=== PATIENT | female | born 1995 | race Caucasian/White ===

== ENCOUNTER 2018-07-06 16:10 | Emergency (ER) | payer OTHER ==
[2018-07-06] MEDS ORDERED: NORMAL SALINE 1000 ML 1,000 ML IV ONE (16:32)
[2018-07-06] MEDS ORDERED: PROMETHAZINE HCL INJ 25 MG/1 ML VIAL IV ONE (16:33)
--- NOTE | 2018-07-06 16:35 | ER Document Report ---
ED Medical Screen (RME) - General Chief Complaint: Flu Symptoms Stated Complaint: FLU SYMPTOMS Time Seen by Provider: 07/06/18 16:27 Notes: Patient is a 23-year-old female that is 15 weeks gravid that presents to the emergency department for chief complaint of nausea, vomiting, epigastric abdominal pain, after taking Zoloft last night. ROS: Unless otherwise stated in this report the patient's positive and negative responses for review of systems for constitutional, eyes, ENT, cardiovascular, respiratory, gastrointestinal, neurological, genitourinary, musculoskeletal, and integumentary systems and related systems to the presenting problem are either as stated in the HPI or were not pertinent or were negative for the symptoms and/or complaints related to the presenting medical problem. PHYSICAL EXAMINATION: Vital signs reviewed. GENERAL: Patient appears uncomfortable HEAD: Atraumatic, normocephalic. EYES: Pupils equal round extraocular movements intact, conjunctiva are normal. ENT: Nares patent NECK: Normal range of motion CV: Heart regular rate and rhythm LUNGS: No respiratory distress Musculoskeletal: Normal range of motion NEUROLOGICAL: Normal speech PSYCH: Normal mood, normal affect. MDM: Patient seen and examined for rapid initial assessment. Vital signs reviewed. A comprehensive ED assessment and evaluation of the patient, analysis of test results and completion of the medical decision making process will be conducted by additional ED providers. *Note is created using voice recognition software and may contain spelling, syntax or grammatical errors. TRAVEL OUTSIDE OF THE [place] IN LAST 30 DAYS: No - Related Data Allergies/Adverse Reactions: hydrocodone Allergy (Verified 07/06/18 16:17) Past Medical History - Social History Frequency of alcohol use: None Drug Abuse: None Renal/ Medical History: Denies: Hx Peritoneal Dialysis Psychiatric Medical History: Reports: Hx Depression Past Surgical History: Reports: Hx Oral Surgery - wisdom teeth Physical Exam - Vital signs Vitals: Temp Pulse Resp BP Pulse Ox 98.4 F 75 18 117/65 97 07/06/18 16:11 07/06/18 16:11 07/06/18 16:11 07/06/18 16:11 07/06/18 16:11 Course - Vital Signs Vital signs: Temp Pulse Resp BP Pulse Ox 98.4 F 75 18 117/65 97 07/06/18 16:11 07/06/18 16:11 07/06/18 16:11 07/06/18 16:11 07/06/18 16:11
[2018-07-06 17:07] LABS: ABSOLUTE LYMPHOCYTES (AUTO) 1.9 10^3/uL (0.5-4.7); ABSOLUTE MONOCYTES (AUTO) 0.7 10^3/uL (0.1-1.4); ABSOLUTE NEUT (AUTO) 8.6 10^3/uL (1.7-8.2); BASOPHILS % (AUTO) 0.2 % (0-2); EOSINOPHILS % (AUTO) 0.1 % (0-6); HEMOGLOBIN 12.9 g/dL (12.0-15.5); LYMPHOCYTES % (AUTO) 16.5 % (13-45); MEAN CORPUSCULAR HEMOGLOBIN 29.9 pg (27.0-33.4); MEAN CORPUSCULAR HGB CONC 34.8 g/dL (32.0-36.0); MEAN CORPUSCULAR VOLUME 86 fl (80-97); MONOCYTES % (AUTO) 6.4 % (3-13); PLATELET COUNT 184 10^3/uL (150-450); RED CELL DISTRIBUTION WIDTH 13.3 % (11.5-14.0); SEGMENTED NEUTROPHILS % (AUTO) 76.8 % (42-78); TOTAL CELLS COUNTED % (AUTO) 100 %; WHITE BLOOD COUNT 11.2 10^3/uL (4.0-10.5)
[2018-07-06 17:17] LABS: APPEARANCE,URINE SLIGHTLY-CLOUDY; BILIRUBIN,URINE NEGATIVE (NEGATIVE); COLOR,URINE YELLOW; GLUCOSE, URINE NEGATIVE (NEGATIVE); KETONES,URINE 80 mg/dL (NEGATIVE); LEUKOCYTE ESTERASE,URINE NEGATIVE (NEGATIVE); NITRITE,URINE NEGATIVE (NEGATIVE); PROTEIN,URINE NEGATIVE (NEGATIVE); URINE SPECIFIC GRAVITY 1.024; UROBILINOGEN,URINE NEGATIVE mg/dL (<2.0)
[2018-07-06 17:25] LABS: ALANINE AMINOTRANSFERASE 14 U/L (9-52); ALBUMIN 4.3 g/dL (3.5-5.0); ALKALINE PHOSPHATASE 70 U/L (38-126); ANION GAP 15 (5-19); ASPARTATE AMINO TRANSFERASE 19 U/L (14-36); BILIRUBIN,DIRECT 0.1 mg/dL (0.0-0.4); BILIRUBIN,TOTAL 0.6 mg/dL (0.2-1.3); BLOOD UREA NITROGEN 5 mg/dL (7-20); CALCIUM 9.7 mg/dL (8.4-10.2); CARBON DIOXIDE 22 mmol/L (22-30); CHLORIDE 103 mmol/L (98-107); GLUCOSE 79 mg/dL (75-110); LIPASE 211.1 U/L (23-300); POTASSIUM 3.8 mmol/L (3.6-5.0); SODIUM 139.6 mmol/L (137-145); TOTAL PROTEIN 7.6 g/dL (6.3-8.2)
[2018-07-06] MEDS ORDERED: FAMOTIDINE INJ/PF 20 MG/2 ML SDV IV ONE (17:48)
--- NOTE | 2018-07-06 17:55 | ER Document Report ---
ED General - General Chief Complaint: Flu Symptoms Stated Complaint: FLU SYMPTOMS Time Seen by Provider: 07/06/18 16:27 TRAVEL OUTSIDE OF THE [place] IN LAST 30 DAYS: No - HPI Notes: Patient is a 23-year-old female at 15 weeks gestation that presents to the emergency department for chief complaint of epigastric pain nausea and vomiting. Patient had sudden onset of acute epigastric pain yesterday. She states that radiates up into her chest. It is a burning sensation. She denies any aggravating or relieving factors. The pain is been constant since onset yesterday. She denies history of pain like this in the past. She denies any chest pain palpitations or shortness of breath. She does have hyperemesis gravidarum with this and takes Zofran and Phenergan at home. She has been taking these medications with some improvement of her nausea. She states just prior to onset of her pain she had taken a Zoloft which is a chronic home medication for her. She denies any alcohol consumption or tobacco use. She is taking vitamins. She has established care including early ultrasound showing single live intrauterine gestation at [facility] where she plans to deliver. Past Medical History: Anxiety, depression Past Surgical History: Negative Social History: Denies drugs alcohol and tobacco Family History: Reviewed and noncontributory for presenting illness Allergies: Reviewed, see documented allergy list. REVIEW OF SYSTEMS: CONSTITUTIONAL : No fever No chills No diaphoresis No recent illness EENT: No vision changes No congestion No sore throat CARDIOVASCULAR: No chest pain No palpitations RESPIRATORY: No shortness of breath No cough No difficulty breathing GASTROINTESTINAL: abdominal pain nausea vomiting No diarrhea GENITOURINARY: No dysuria No hematuria No difficulty urinating MUSCULOSKELETAL: No back pain No leg pain No arm pain SKIN: No rashes No lesions LYMPHATIC: No swollen, enlarged glands. NEUROLOGICAL: No lightheadedness No headache No weakness No paresthesias PSYCHIATRIC: No anxiety No depression PHYSICAL EXAMINATION: Vital signs reviewed, nursing noted reviewed. GENERAL: Well-appearing, well-nourished and in no acute distress. HEAD: Atraumatic, normocephalic. EYES: Eyes appear normal, extraocular movements intact, sclera anicteric, conjunctiva are normal. ENT: nares patent, oropharynx clear without exudates. Moist mucous membranes. NECK: Normal range of motion, supple without lymphadenopathy LUNGS: Breath sounds clear to auscultation bilaterally and equal. No wheezes rales or rhonchi. HEART: Regular rate and rhythm without murmurs ABDOMEN: Soft, nontender, normoactive bowel sounds. No rebound, guarding, or rigidity. No masses appreciated. Gravid uterus palpated below umbilicus, soft nontender. EXTREMITIES: Nontender, good range of motion, no pitting or edema. NEUROLOGICAL: No focal neurological deficits. Moves all extremities spontaneously Motor and sensory grossly intact on exam. PSYCH: Normal mood, normal affect. SKIN: Warm, Dry, normal turgor, no rashes or lesions noted on exposed skin - Related Data Allergies/Adverse Reactions: hydrocodone Allergy (Verified 07/06/18 16:17) Past Medical History - Social History Smoking Status: Never Smoker Frequency of alcohol use: None Drug Abuse: None Family History: Reviewed & Not Pertinent Patient has suicidal ideation: No Patient has homicidal ideation: No Renal/ Medical History: Denies: Hx Peritoneal Dialysis Psychiatric Medical History: Reports: Hx Depression Past Surgical History: Reports: Hx Oral Surgery - wisdom teeth Review of Systems - Review of Systems Notes: Dictated Physical Exam - Vital signs Vitals: Temp Pulse Resp BP Pulse Ox 98.4 F 75 18 117/65 97 07/06/18 16:11 07/06/18 16:11 07/06/18 16:11 07/06/18 16:11 07/06/18 16:11 Course - Re-evaluation Re-evalutation: 07/06/18 17:51 Vitals reviewed. Nursing notes reviewed. Patient is having epigastric pain radiating into her chest. It has been constant since yesterday. Troponin was ordered and negative, I do not suspect ACS. She is not having any respiratory complaints or shortness of breath and pulmonary embolism is not currently suspected. Patient was given Pepcid for her epigastric pain. She was given IV hydration and Phenergan with improvement of symptoms. The remainder of her lab work is unremarkable. She has normal renal function and electrolytes. She was encouraged to follow with her [employer] [employer] for reevaluation in the next few days. She states she has an appointment on 07/13/13. She will return for any new or worsening symptoms. She will begin taking Pepcid at home and Tums. She was counseled on dietary changes to help with GERD. She verbalized understanding and was discharged in stable condition. Laboratory 07/06/18 07/06/18 07/06/18 16:50 16:50 16:50 WBC 11.2 H RBC 4.30 Hgb 12.9 Hct 37.0 MCV 86 MCH 29.9 MCHC 34.8 RDW 13.3 Plt Count 184 Seg Neutrophils % 76.8 Lymphocytes % 16.5 Monocytes % 6.4 Eosinophils % 0.1 Basophils % 0.2 Absolute Neutrophils 8.6 H Absolute Lymphocytes 1.9 Absolute Monocytes 0.7 Absolute Eosinophils 0.0 Absolute Basophils 0.0 Sodium 139.6 Potassium 3.8 Chloride 103 Carbon Dioxide 22 Anion Gap 15 BUN 5 L Creatinine 0.44 L Est GFR ( Amer) > 60 Est GFR (Non-Af Amer) > 60 Glucose 79 Calcium 9.7 Total Bilirubin 0.6 Direct Bilirubin 0.1 Neonat Total Bilirubin Not Reportable Neonat Direct Bilirubin Not Reportable Neonat Indirect Bili Not Reportable AST 19 ALT 14 Alkaline Phosphatase 70 Troponin I < 0.012 Total Protein 7.6 Albumin 4.3 Lipase 211.1 Urine Color Urine Appearance Urine pH Ur Specific [place] Urine Protein Urine Glucose (UA) Urine Ketones Urine Blood Urine Nitrite Urine Bilirubin Urine Urobilinogen Ur Leukocyte Esterase Urine WBC (Auto) Urine RBC (Auto) Urine Bacteria (Auto) Squamous Epi Cells Auto Urine Mucus (Auto) Urine Ascorbic Acid 07/06/18 16:50 WBC RBC Hgb Hct MCV MCH MCHC RDW Plt Count Seg Neutrophils % Lymphocytes % Monocytes % Eosinophils % Basophils % Absolute Neutrophils Absolute Lymphocytes Absolute Monocytes Absolute Eosinophils Absolute Basophils Sodium Potassium Chloride Carbon Dioxide Anion Gap BUN Creatinine Est GFR ( Amer) Est GFR (Non-Af Amer) Glucose Calcium Total Bilirubin Direct Bilirubin Neonat Total Bilirubin Neonat Direct Bilirubin Neonat Indirect Bili AST ALT Alkaline Phosphatase Troponin I Total Protein Albumin Lipase Urine Color YELLOW Urine Appearance SLIGHTLY-CLOUDY Urine pH 6.0 Ur Specific [place] 1.024 Urine Protein NEGATIVE Urine Glucose (UA) NEGATIVE Urine Ketones 80 H Urine Blood NEGATIVE Urine Nitrite NEGATIVE Urine Bilirubin NEGATIVE Urine Urobilinogen NEGATIVE Ur Leukocyte Esterase NEGATIVE Urine WBC (Auto) 4 Urine RBC (Auto) 1 Urine Bacteria (Auto) 2+ Squamous Epi Cells Auto 2 Urine Mucus (Auto) MANY Urine Ascorbic Acid 20 H - Vital Signs Vital signs: Temp Pulse Resp BP Pulse Ox 98.4 F 75 18 117/65 97 07/06/18 16:11 07/06/18 16:11 07/06/18 16:11 07/06/18 16:11 07/06/18 16:11 - Laboratory Result Diagrams: 07/06/18 16:50 07/06/18 16:50 Laboratory results interpreted by me: 07/06/18 07/06/18 07/06/18 16:50 16:50 16:50 WBC 11.2 H Absolute Neutrophils 8.6 H BUN 5 L Creatinine 0.44 L Urine Ketones 80 H Urine Ascorbic Acid 20 H - EKG Interpretation by Me Additional EKG results interpreted by me: 07/06/18 17:52 Interpreted by myself Normal sinus rhythm, rate 60, normal axis, no ectopy, no ST elevation Discharge - Discharge Clinical Impression: Epigastric pain Condition: Stable Disposition: HOME, SELF-CARE Instructions: Reflux Disease (GERD) ([facility]) Additional Instructions: Please return to the emergency department if you have any worsening, or concern of your symptoms. Please return to the emergency department if you develop chest pain, difficulty breathing, severe abdominal pain, or ongoing vomiting. Please follow-up with your primary care physician in 2-3 days and any other recommended physicians. If prescribed, take all medications as directed. If you have any questions or concerns do not hesitate to return the emergency department for evaluation. [] Prescriptions: Ranitidine HCl 150 mg PO BID #30 tablet
[2018-07-06 19:32] VITALS: BP 114/66
--- NOTE | 2018-07-06 22:07 | EKG REPORT ---
SEVERITY:- NORMAL ECG - SINUS RHYTHM : Confirmed by: Tra Seth 06-Jul-2018 22:06:37
== END 2018-07-06 18:09 | disposition home or self-care (01) ==
LOC: ER 16:10
DX: O26.892 Other specified pregnancy related conditions, second trimester (principal); R10.13 Epigastric pain; O21.0 Mild hyperemesis gravidarum; O99.342 Other mental disorders complicating pregnancy, second trimester; F32.9 Major depressive disorder, single episode, unspecified; F41.9 Anxiety disorder, unspecified; Z79.899 Other long term (current) drug therapy; Z3A.15 15 weeks gestation of pregnancy; Z88.5 Allergy status to narcotic agent
CPT/HCPCS: 93005; 99284; 96361; 96374; 96375; 36415; 83690; 85025; 80053; 81001; 84484; 93010; J2550; J7030; S0028

== ENCOUNTER 2019-11-23 16:42 | Emergency (ER) | payer BC, OTHER ==
[2019-11-23] MEDS ORDERED: ONDANSETRON 4 MG TAB.RAPDIS PO ONE (17:35)
--- NOTE | 2019-11-23 17:37 | ER Document Report ---
ED Medical Screen (RME) - General Chief Complaint: Fever Stated Complaint: CHEST PAIN/NECK PAIN Time Seen by Provider: 11/23/19 17:24 Mode of Arrival: Ambulatory Information source: Patient Notes: 24-year-old female patient presents emergency department multiple symptoms today. Patient reports cough, fever, congestion, neck pain, ear pain, states she has been sick for several days. Denies any recent travel, denies any exposure to any known COVID patients. Lung sounds clear and equal bilaterally. I have greeted and performed a rapid initial assessment of this patient. A comprehensive ED assessment and evaluation of the patient, analysis of test results and completion of the medical decision making process will be conducted by additional ED providers. I have specifically instructed the patient or family members with the patient to immediately return to any nursing staff should anything change in the patient's condition or with their chief complaint. TRAVEL OUTSIDE OF THE [place] IN LAST 30 DAYS: No - Related Data Allergies/Adverse Reactions: hydrocodone Allergy (Verified 07/06/18 16:17) Home Medications: Prozac. Buspar. Vitamin B12. Vitamin D. Iron. Sumatriptin. Propanolol. Lisinopril. Flexeril. Celebrex Past Medical History - Social History Frequency of alcohol use: Occasional Drug Abuse: None Renal/ Medical History: Denies: Hx Peritoneal Dialysis Psychiatric Medical History: Reports: Hx Depression Past Surgical History: Reports: Hx Oral Surgery - wisdom teeth Physical Exam - Vital signs Vitals: Temp Pulse Resp BP Pulse Ox 98.2 F 56 L 16 134/65 H 99 11/23/19 17:07 11/23/19 17:07 11/23/19 17:07 11/23/19 17:07 11/23/19 17:07 Course - Vital Signs Vital signs: Temp Pulse Resp BP Pulse Ox 98.2 F 56 L 16 134/65 H 99 11/23/19 17:07 11/23/19 17:07 11/23/19 17:07 11/23/19 17:07 11/23/19 17:07
[2019-11-23 18:28] LABS: ABSOLUTE EOSINOPHILS # (AUTO) 0.1 10^3/uL (0.0-0.6); ABSOLUTE LYMPHOCYTES (AUTO) 2.8 10^3/uL (0.5-4.7); ABSOLUTE MONOCYTES (AUTO) 0.5 10^3/uL (0.1-1.4); ABSOLUTE NEUT (AUTO) 4.9 10^3/uL (1.7-8.2); BASOPHILS % (AUTO) 0.4 % (0-2); EOSINOPHILS % (AUTO) 1.4 % (0-6); HEMATOCRIT 38.8 % (36.0-47.0); LYMPHOCYTES % (AUTO) 33.1 % (13-45); MEAN CORPUSCULAR HEMOGLOBIN 30.5 pg (27.0-33.4); MEAN CORPUSCULAR VOLUME 85 fl (80-97); MONOCYTES % (AUTO) 6.5 % (3-13); PLATELET COUNT 225 10^3/uL (150-450); RED BLOOD COUNT 4.57 10^6/uL (3.72-5.28); RED CELL DISTRIBUTION WIDTH 12.9 % (11.5-14.0); SEGMENTED NEUTROPHILS % (AUTO) 58.6 % (42-78); TOTAL CELLS COUNTED % (AUTO) 100 %; WHITE BLOOD COUNT 8.4 10^3/uL (4.0-10.5)
[2019-11-23 18:33] LABS: APPEARANCE,URINE SLIGHTLY-CLOUDY; BILIRUBIN,URINE NEGATIVE (NEGATIVE); COLOR,URINE YELLOW; GLUCOSE, URINE NEGATIVE (NEGATIVE); KETONES,URINE NEGATIVE (NEGATIVE); LEUKOCYTE ESTERASE,URINE NEGATIVE (NEGATIVE); NITRITE,URINE NEGATIVE (NEGATIVE); PROTEIN,URINE NEGATIVE (NEGATIVE); URINE SPECIFIC GRAVITY 1.012; UROBILINOGEN,URINE NEGATIVE mg/dL (<2.0)
[2019-11-23 18:42] LABS: A TYPE INFLUENZA AG NEGATIVE (NEGATIVE); B INFLUENZA AG NEGATIVE (NEGATIVE)
[2019-11-23 18:43] LABS: ALBUMIN 4.6 g/dL (3.5-5.0); ALKALINE PHOSPHATASE 90 U/L (38-126); ANION GAP 10 (5-19); ASPARTATE AMINO TRANSFERASE 31 U/L (14-36); BILIRUBIN,DIRECT 0.3 mg/dL (0.0-0.4); BILIRUBIN,TOTAL 0.3 mg/dL (0.2-1.3); BLOOD UREA NITROGEN 9 mg/dL (7-20); CALCIUM 9.8 mg/dL (8.4-10.2); CARBON DIOXIDE 28 mmol/L (22-30); CHLORIDE 104 mmol/L (98-107); GLUCOSE 83 mg/dL (75-110); TOTAL PROTEIN 8.1 g/dL (6.3-8.2)
[2019-11-23] MEDS ORDERED: ONDANSETRON 4 MG TAB.RAPDIS ONE (20:00)
[2019-11-23] MEDS ORDERED: PROCHLORPERAZINE EDISYLATE INJ 10 MG/2 ML VIAL IV ONE (21:15)
[2019-11-23] MEDS ORDERED: NORMAL SALINE 500 ML IV ONE (21:15)
[2019-11-23] MEDS ORDERED: KETOROLAC TROMETHAMINE INJ/PF 30 MG/1 ML SDV IV ONE (21:15)
--- NOTE | 2019-11-23 21:19 | ER Document Report ---
ED General - General Chief Complaint: Fever Stated Complaint: CHEST PAIN/NECK PAIN Time Seen by Provider: 11/23/19 17:24 Mode of Arrival: Ambulatory TRAVEL OUTSIDE OF THE [place] IN LAST 30 DAYS: No - HPI Notes: Patient is a 24-year-old female who presents to the ED complaining of nasal congestion/discharge, dry nonproductive cough, irritated throat, fever, body ache. Her fever began today and her URI/cough has been ongoing for 1-2 weeks. She did have n/v a few days ago but that has resolved. She does have a h/o migraines and has been having a RODRIGUEZ for the past 4 days. This is not the worst RODRIGUEZ of her life and did not start as a thunderclap. Patient states that she is still eating and drinking without difficulties, but does have a decreased p.o. intake. She is still urinating normally having normal bowel movements. Patient has been using some [id number] meds for symptoms. She denies any significant past medical history including cardiopulmonary history and i mmunocompromised conditions. Denies any changes in vision/speech, neck pain, chest pain, palpitations, syncope, shortness of breath, wheeze, dyspnea, abdominal pain, current vomiting/diarrhea, urinary retention, dysuria, hematuria, or rash. - Related Data Allergies/Adverse Reactions: hydrocodone Allergy (Verified 07/06/18 16:17) Home Medications: Prozac. Buspar. Vitamin B12. Vitamin D. Iron. Sumatriptin. Propanolol. Lisinopril. Flexeril. Celebrex Past Medical History - General Information source: Patient - Social History Smoking Status: Former Smoker Frequency of alcohol use: Occasional Drug Abuse: None Family History: Reviewed & Not Pertinent Patient has suicidal ideation: No Patient has homicidal ideation: No Renal/ Medical History: Denies: Hx Peritoneal Dialysis Psychiatric Medical History: Reports: Hx Depression Past Surgical History: Reports: Hx Oral Surgery - wisdom teeth Review of Systems - Review of Systems -: Yes All other systems reviewed and negative Physical Exam - Vital signs Vitals: Temp Pulse Resp BP Pulse Ox 98.2 F 56 L 16 134/65 H 99 11/23/19 17:07 11/23/19 17:07 11/23/19 17:07 11/23/19 17:07 11/23/19 17:07 - Notes Notes: PHYSICAL EXAMINATION: GENERAL: Well-appearing, well-nourished and in no acute distress. A&Ox4. Answers questions appropriately. HEAD: Atraumatic, normocephalic. Non-tender. EYES: Pupils equal round and reactive to light, extraocular movements intact, sclera anicteric, conjunctiva are normal. No nystagmus. ENT: Nares patent and with clear discharge. oropharynx no erythema without exudates. No tonsilar hypertrophy without erythema or exudate. No palatine shift. Uvula midline. No tongue protrusion. No drooling, hoarseness, or airway compromise. Moist mucous membranes. NECK: Normal range of motion, supple without lymphadenopathy. No rigidity/meningismus. + mild tenderness rt neck/trap muscle. LUNGS: Breath sounds clear to auscultation bilaterally and equal. No wheezes rales or rhonchi. No retractions LUNGS: Breath sounds clear to auscultation bilaterally and equal. No wheezes rales or rhonchi. HEART: Regular rate and rhythm without murmurs, rubs, gallops. ABDOMEN: Soft, nontender, nondistended abdomen. No guarding, no rebound. Normal bowel sounds present. No CVA tenderness bilaterally. Musculoskeletal: Ext b/l: FROM to passive/active. Strength 5+/5. No deficits noted. No bony tenderness of extremities. Extremities: No cyanosis, clubbing, or edema b/l. Peripheral pulses 2+. Capillary refill less than 2 seconds. NEUROLOGICAL: NIH 0. GCS 15. Cranial nerves grossly intact. Normal speech, normal gait. Normal sensory, motor exams. PSYCH: Normal mood, normal affect. SKIN: Warm, Dry, normal turgor, no rashes or lesions noted. Course - Re-evaluation Re-evalutation: 11/23/19 22:16 Patient is an afebrile, well-hydrated, 24-year-old male who presents to the emergency department with an acute URI, suspect viral. Vitals are acceptable without significant tachycardia, tachypnea, or hypoxia. PE is otherwise unremarkable. He is nontoxic-appearing and is tolerating p.o. without difficulty. Lungs are clear to auscultation bilaterally. Labs/imaging unremarkable. No further labs or imaging warranted at this time. Pt adamant that she rarely goes outside her home as is and does not have any known exposure to garrett. She is refusing any testing for it and states that she will be staying at home regardless for the foreseeable future. Reviewed with Dr. Jenkins who is in agreement with dispo/plan. Low suspicion for any meningitis, sepsis, peritonsillar/pharyngeal abscess, respiratory compromise, pneumonia, or other emergent systemic condition at this time. Patient is aware this condition can change from initial presentation and he needs to monitor symptoms closely. Conservative measures otherwise for symptoms. Recheck with your PCM in 1 week. Return to the ED with any worsening/concerning symptoms otherwise as reviewed in discharge. Patient is in agreement. - Vital Signs Vital signs: Temp Pulse Resp BP Pulse Ox 97.8 F 56 L 16 134/65 H 99 11/23/19 20:57 11/23/19 17:07 11/23/19 17:07 11/23/19 17:07 11/23/19 17:07 - Laboratory Result Diagrams: 11/23/19 17:50 11/23/19 17:50 Discharge - Discharge Clinical Impression: Acute URI Condition: Stable Disposition: HOME, SELF-CARE Instructions: Upper Respiratory Illness ([facility]) Additional Instructions: You should isolate yourself for the next 5-7 days at minimum and re-eval with PCM thereafter. Return with any worsening symptoms. Maintain adequate fluid intake tylenol/ibuprofen as needed alternating every 3 hours for fever/body ache over the counter cold medication as needed for symptoms Humidified air may help Wash your hands regularly Wear a mask when coughing F/u: with your PCM in 1 week for a recheck Return to the ED with any fever, altered mental status/behavior, chest pain, palpitations, syncope, headache, neck pain/stiffness, shortness of breath, chest pains, wheezing, drooling, trouble swallowing/breathing, abdominal pain, n/v/d, rash, or worsening/concerning symptoms otherwise. Forms: Elevated Blood Pressure, Return to Work Referrals: [facility] [Provider Group] - Follow up as needed
--- NOTE | 2019-11-23 21:29 | RADIOLOGY REPORT (SQ) ---
EXAM DESCRIPTION: PA and lateral radiographs of the chest CLINICAL HISTORY: 24 years Female, cough COMPARISON: None. FINDINGS: Lungs: Lungs are clear. No pneumonia or edema. No pneumothorax or pleural effusion. Mediastinum: Cardiac and mediastinal silhouette are normal. Bones: Osseous structures are normal. EKG leads overlie both sides of the chest. IMPRESSION: Unremarkable radiographs of the chest
--- NOTE | 2019-11-23 21:47 | EKG REPORT ---
SEVERITY:- BORDERLINE ECG - SINUS RHYTHM BORDERLINE T ABNORMALITIES, ANTERIOR LEADS : Confirmed by: Kristina Ramirez MD 23-Nov-2019 21:46:53
[2019-11-23 23:05] VITALS: BP 118/75
== END 2019-11-23 22:30 | disposition home or self-care (01) ==
LOC: ER 16:42
DX: J06.9 Acute upper respiratory infection, unspecified (principal); R50.9 Fever, unspecified; R07.9 Chest pain, unspecified; M54.2 Cervicalgia; R09.81 Nasal congestion; R05 Cough; R09.89 Other specified symptoms and signs involving the circulatory and respiratory systems; R63.0 Anorexia; Z88.8 Allergy status to other drugs, medicaments and biological substances; Z79.899 Other long term (current) drug therapy; Z87.891 Personal history of nicotine dependence
CPT/HCPCS: 93005; 99284; 96361; 96374; 96375; 36415; 87070; 87880; 85025; 80053; 81001; 87804; 71046; 93010; S0119; J1885; J0780; J7040

== ENCOUNTER 2020-03-10 07:20 | Emergency (ER) | payer BC ==
[2020-03-10 08:39] LABS: ABSOLUTE EOSINOPHILS # (AUTO) 0.1 10^3/uL (0.0-0.6); ABSOLUTE LYMPHOCYTES (AUTO) 1.5 10^3/uL (0.5-4.7); ABSOLUTE MONOCYTES (AUTO) 0.6 10^3/uL (0.1-1.4); ABSOLUTE NEUT (AUTO) 4.1 10^3/uL (1.7-8.2); BASOPHILS % (AUTO) 0.3 % (0-2); EOSINOPHILS % (AUTO) 1.5 % (0-6); HEMATOCRIT 40.4 % (36.0-47.0); HEMOGLOBIN 13.9 g/dL (12.0-15.5); MEAN CORPUSCULAR HEMOGLOBIN 29.7 pg (27.0-33.4); MEAN CORPUSCULAR HGB CONC 34.4 g/dL (32.0-36.0); MEAN CORPUSCULAR VOLUME 87 fl (80-97); MONOCYTES % (AUTO) 8.8 % (3-13); PLATELET COUNT 179 10^3/uL (150-450); RED BLOOD COUNT 4.67 10^6/uL (3.72-5.28); RED CELL DISTRIBUTION WIDTH 12.4 % (11.5-14.0); SEGMENTED NEUTROPHILS % (AUTO) 65.4 % (42-78); TOTAL CELLS COUNTED % (AUTO) 100 %; WHITE BLOOD COUNT 6.3 10^3/uL (4.0-10.5)
[2020-03-10 08:42] LABS: ALBUMIN 4.2 g/dL (3.5-5.0); ALKALINE PHOSPHATASE 82 U/L (38-126); ANION GAP 5 (5-19); ASPARTATE AMINO TRANSFERASE 25 U/L (14-36); BILIRUBIN,TOTAL 0.6 mg/dL (0.2-1.3); BLOOD UREA NITROGEN 11 mg/dL (7-20); CALCIUM 8.7 mg/dL (8.4-10.2); CARBON DIOXIDE 25 mmol/L (22-30); CHLORIDE 107 mmol/L (98-107); GLUCOSE 95 mg/dL (75-110); POTASSIUM 3.7 mmol/L (3.6-5.0); TOTAL PROTEIN 7.4 g/dL (6.3-8.2)
--- NOTE | 2020-03-10 09:46 | EKG REPORT ---
SEVERITY:- BORDERLINE ECG - SINUS RHYTHM BORDERLINE T ABNORMALITIES, ANTERIOR LEADS : Confirmed by: Kristina Ramirez MD 10-Mar-2020 09:45:06
--- NOTE | 2020-03-10 10:38 | ER Document Report ---
ED General - General Chief Complaint: Chest Pain Stated Complaint: CHEST PAIN/DIFFICULTY BREATHING Time Seen by Provider: 03/10/20 09:44 Primary Care Provider: SILVIA MILLARD PA-C [Primary Care Provider] - Follow up as needed TRAVEL OUTSIDE OF THE [place] IN LAST 30 DAYS: No - HPI Notes: Chief complaint: Chest pain History of present illness: 25-year-old female followed by NANCY Otto with history of chronic/recurrent chest discomfort and reports of multiple syncopal episodes in the past. She was actually scheduled to come in for an outpatient MRI of the brain at 930 this morning but did not keep this appointment because she was here being seen for chest discomfort. She states that she has had some nonproductive cough not accompanied by fever. She denies COVID-19 exposure. She denies any recent travel. No GI symptoms. No loss of sense of taste or smell. She complains of cramping discomfort in the center of her chest without radiation. History of hypertension being treated with lisinopril. She is a non-smoker. No history of hyperlipidemia or diabetes mellitus. She has at least 1 elderly relative who has had coronary disease. No younger people in the family with heart disease. She denies any known history of thromboembolic disease. She denies any use of cocaine. She denies any personal or familial history of thromboembolic disease. HEART Score: HISTORY 0 ECG 0 AGE 0 RISK FACTORS 1 TROPONIN 0 TOTAL: If HEART score is < 3 AND both tronponin measurments are normal, the 30 day risk of a major adverse cardiac event (all-cause mortality, myocardia infarction or need for coronary revscularization) is < 1% (Sensitivity 100%, NPV 100%). PERC SCORE (HADCLOTS) H no hormone administration A Age<50 D no DVT/PE previously C no hemoptysis L no unilateral leg edema O O2 sat >95% T no tachycardia S no surgery/Trauma recently - Related Data Allergies/Adverse Reactions: hydrocodone Allergy (Verified 03/10/20 07:32) Home Medications: buspar. prozac. lisinopril. iron. calcium. vit. d and b. celebrex. flexeril. imitrex Past Medical History - General Information source: Patient, [facility] Records - Social History Smoking Status: Former Smoker Chew tobacco use (# tins/day): No Frequency of alcohol use: Occasional Drug Abuse: None Occupation: Equipment Cleaner at [employer] Lives with: Family Family History: Reviewed & Not Pertinent Patient has homicidal ideation: No - Past Medical History Cardiac Medical History: Reports: None Pulmonary Medical History: Reports: None Neurological Medical History: Reports: Other - Chronic/recurrent syncope being worked up by primary care physician Endocrine Medical History: Reports: Other - History of hypoglycemia Renal/ Medical History: Denies: Hx Peritoneal Dialysis Psychiatric Medical History: Reports: Hx Depression Past Surgical History: Reports: Hx Oral Surgery - wisdom teeth Review of Systems - Review of Systems Notes: Constitutional: Negative for fever. HENT: Negative for sore throat. Eyes: Negative for visual changes. Cardiovascular: As per HPI. Respiratory: As per HPI. Gastrointestinal: Negative for abdominal pain, vomiting or diarrhea. Genitourinary: Negative for dysuria. Musculoskeletal: Negative for back pain. Skin: Negative for rash. Neurological: As per HPI. No focal neurologic symptoms. 10 point ROS negative except as marked above and in HPI. Physical Exam - Vital signs Vitals: Temp Pulse Resp BP Pulse Ox 98.4 F 76 18 118/78 97 03/10/20 07:32 03/10/20 07:32 03/10/20 07:32 03/10/20 07:32 03/10/20 07:32 - Notes Notes: GENERAL: Well-developed well-nourished appearing in no acute distress. SKIN: Good turgor no rashes. HEAD: Normocephalic atraumatic. EYES: PERRLA. EOMI. Conjunctivae and sclerae clear. EARS: CANALS AND TMS CLEAR. NOSE: CLEAR. MOUTH: Moist mucosa. Good dentition. No stridor or edema. No drooling. NECK: Supple. No masses or thyromegaly. No adenopathy. Carotids 2+ without bruits. No JVD. BACK: Symmetrical without tenderness. CHEST: Diffuse tenderness of anterior chest wall which exactly reproduces her symptoms. Respirations unlabored. Breath sounds clear and symmetrical. HEART: Regular rhythm. No murmur gallop or rub. ABDOMEN: Soft nontender without masses, organomegaly or rebound. Bowel sounds normally active. No bruits. GENITALIA: Deferred. EXTREMITIES: No edema. No calf tenderness. Cap refill less than 1.5 seconds. Dorsalis pedis and posterior tibial pulses 3+ and symmetrical. NEUROLOGICAL: GCS 15. Alert and oriented x3. Normal gait. Fluent speech. Cranial nerves II through XII intact. Sensorimotor and cerebellar normal. Normal tone. PSYCHIATRIC: Flat affect. Course - Re-evaluation Re-evalutation: 03/10/20 10:40 I explained to the patient she appears to be at very low risk for CAD or PE. She has a normal EKG here. She has a normal troponin and normal CBC and comprehensive metabolic profile. Her pain seems to be completely reproducible with palpation over the chest area. I see no abnormality on her neurologic exam at this time and think she can follow-up with her primary care physician regarding her ongoing work-up for chronic/recurrent syncope. Findings, clinical impression and plan of treatment have been discussed with patient/family. Understanding of current findings and recommendations has been acknowledged by them and there is agreement regarding disposition and follow-up. - Vital Signs Vital signs: Temp Pulse Resp BP Pulse Ox 98.4 F 76 18 118/78 97 03/10/20 07:32 03/10/20 07:32 03/10/20 07:32 03/10/20 07:32 03/10/20 07:32 - Laboratory Result Diagrams: 03/10/20 08:11 03/10/20 08:11 Laboratory results interpreted by me: 03/10/20 08:11 Sodium 136.5 L - EKG Interpretation by Me Additional EKG results interpreted by me: 03/10/20 10:41 Twelve-lead EKG from 0729 hrs. reviewed contemporaneously by me showing normal sinus rhythm with a rate of 80 and a normal QRS axis of +31 degrees. Intervals are normal. Patient shows no acute ST/T wave changes. There are no prior EKGs for direct comparison. Indication for current study: Chest pain. Discharge - Discharge Clinical Impression: Chest wall pain Condition: Stable Disposition: HOME, SELF-CARE Instructions: Chest Wall Pain ([facility]) Additional Instructions: Take prescribed medication as needed. Follow-up with your primary care physician next 3 to 5 days. Return here as needed for new or worsening symptoms: Pain that is worsening or unimproved Uncontrolled vomiting High fever or shaking chills Overall worsening Prescriptions: Naproxen 500 mg PO BID PRN 7 Days #14 tablet PRN Reason: Referrals: FREEMAN,SILVIA, PA-C [Primary Care Provider] - Follow up as needed
[2020-03-10 11:21] VITALS: BP 120/68
== END 2020-03-10 11:22 | disposition home or self-care (01) ==
LOC: ER 07:20
DX: R07.89 Other chest pain (principal); R05 Cough; I10 Essential (primary) hypertension; F32.9 Major depressive disorder, single episode, unspecified; Z79.899 Other long term (current) drug therapy; Z87.891 Personal history of nicotine dependence; Z88.6 Allergy status to analgesic agent; Z88.5 Allergy status to narcotic agent; Z82.49 Family history of ischemic heart disease and other diseases of the circulatory system
CPT/HCPCS: 36415; 80053; 84484; 85025; 93005; 93010; 99285

== ENCOUNTER 2020-04-01 14:53 | Emergency (ER) | payer BC ==
--- NOTE | 2020-04-01 15:20 | ER Document Report ---
ED Medical Screen (RME) - General Chief Complaint: Back Pain Stated Complaint: BACK PAIN Time Seen by Provider: 04/01/20 15:10 Primary Care Provider: SILVIA MILLARD PA-C [Primary Care Provider] - Follow up as needed Mode of Arrival: Wheelchair Information source: Patient Notes: Patient is a 25-year-old female comes emergency room complaining of back pain. Patient states that she has a history of DJD in her lower back and that she was post have an MRI over a year ago but did not get it done. She states that she started with a little bit of discomfort yesterday her low back and her and her are looking at houses today in the middle of looking at a house patient had sudden severe pain in her lower back that she lost feeling in bilateral lower extremities and she collapsed to the ground. Patient states she has been unable to ambulate her has had to carry her. She states she has lost sensation in her lower extremities although she does state that she has numbness and tingling down both lower extremities. She denies any loss of urine or stool. Patient states she has a past medical history pertinent for hypertension, hypoglycemia, history of syncopal episodes with in the past year of at least 20 with multiple concussions from the falls. Physical examination shows patient to be a well-nourished well-developed 25-year-old female who is in no apparent distress on examination this afternoon. Cardiac: Auscultation shows patient have heart sounds that are regular rate without any murmurs. Lungs: Bilateral breath sounds of breath sounds increased clear to auscultation. Abdomen: Bowel sounds present all 4 quads nontender to palpate. Lower extremities examination of patient's neurological status in the lower extremities is very difficult to ascertain in triage with patient in a wheelchair however patient states that in a sitting position with eyes closed and the use of a pen by this provider she states she is unable to feel any sensation in her inner lower legs and thighs. And difficulty feeling any sensation with the use of a pen into the skin of sensation on the outer thighs as well. Further evaluation does show patient to have flexion and extension at the ankles. I have greeted and performed a rapid initial assessment of this patient. A comprehensive ED assessment and evaluation of the patient, analysis of test re sults and completion of the medical decision making process will be conducted by additional ED providers. Dictation of this chart was performed using voice recognition software; therefore, there may be some unintended grammatical errors. Further evaluation by the provider and back will definitely need to be performed especially good neurologic examination with sensation techniques in order to as certain next steps in CT versus MRI. TRAVEL OUTSIDE OF THE [place] IN LAST 30 DAYS: No - Related Data Allergies/Adverse Reactions: hydrocodone Allergy (Verified 04/01/20 15:10) Past Medical History Renal/ Medical History: Denies: Hx Peritoneal Dialysis Psychiatric Medical History: Reports: Hx Depression Past Surgical History: Reports: Hx Oral Surgery - wisdom teeth Physical Exam - Vital signs Vitals: Temp Pulse Resp BP Pulse Ox 98.2 F 86 18 119/71 100 04/01/20 14:57 04/01/20 14:57 04/01/20 14:57 04/01/20 14:57 04/01/20 14:57 Course - Vital Signs Vital signs: Temp Pulse Resp BP Pulse Ox 98.2 F 86 18 119/71 100 04/01/20 14:57 04/01/20 14:57 04/01/20 14:57 04/01/20 14:57 04/01/20 14:57 Doctor's Discharge - Discharge Referrals: SILVIA MILLARD PA-C [Primary Care Provider] - Follow up as needed
[2020-04-01 15:45] LABS: ABSOLUTE EOSINOPHILS # (AUTO) 0.2 10^3/uL (0.0-0.6); ABSOLUTE LYMPHOCYTES (AUTO) 2.5 10^3/uL (0.5-4.7); ABSOLUTE MONOCYTES (AUTO) 0.6 10^3/uL (0.1-1.4); ABSOLUTE NEUT (AUTO) 4.2 10^3/uL (1.7-8.2); BASOPHILS % (AUTO) 0.6 % (0-2); EOSINOPHILS % (AUTO) 2.9 % (0-6); HEMATOCRIT 41.9 % (36.0-47.0); HEMOGLOBIN 14.6 g/dL (12.0-15.5); LYMPHOCYTES % (AUTO) 33.2 % (13-45); MEAN CORPUSCULAR HEMOGLOBIN 29.7 pg (27.0-33.4); MEAN CORPUSCULAR HGB CONC 34.8 g/dL (32.0-36.0); MEAN CORPUSCULAR VOLUME 85 fl (80-97); MONOCYTES % (AUTO) 8.4 % (3-13); PLATELET COUNT 205 10^3/uL (150-450); RED BLOOD COUNT 4.92 10^6/uL (3.72-5.28); RED CELL DISTRIBUTION WIDTH 12.6 % (11.5-14.0); SEGMENTED NEUTROPHILS % (AUTO) 54.9 % (42-78); TOTAL CELLS COUNTED % (AUTO) 100 %; WHITE BLOOD COUNT 7.6 10^3/uL (4.0-10.5)
[2020-04-01 16:04] LABS: ALBUMIN 4.8 g/dL (3.5-5.0); ALKALINE PHOSPHATASE 83 U/L (38-126); ANION GAP 8 (5-19); ASPARTATE AMINO TRANSFERASE 25 U/L (14-36); BILIRUBIN,TOTAL 0.5 mg/dL (0.2-1.3); BLOOD UREA NITROGEN 11 mg/dL (7-20); CARBON DIOXIDE 24 mmol/L (22-30); CHLORIDE 105 mmol/L (98-107); GLUCOSE 92 mg/dL (75-110); TOTAL PROTEIN 8.1 g/dL (6.3-8.2)
[2020-04-01 16:32] LABS: APPEARANCE,URINE SLIGHTLY-CLOUDY; BILIRUBIN,URINE NEGATIVE (NEGATIVE); COLOR,URINE YELLOW; GLUCOSE, URINE NEGATIVE (NEGATIVE); KETONES,URINE NEGATIVE (NEGATIVE); LEUKOCYTE ESTERASE,URINE SMALL (NEGATIVE); NITRITE,URINE NEGATIVE (NEGATIVE); PROTEIN,URINE NEGATIVE (NEGATIVE); URINE SPECIFIC GRAVITY 1.014
[2020-04-01 16:50] LABS: URINE AMPHETAMINES SCREEN NEGATIVE; URINE BARBITURATES SCREEN NEGATIVE; URINE BENZODIAZEPINES SCREEN NEGATIVE; URINE COCAINE SCREEN NEGATIVE; URINE MARIJUANA (THC) SCREEN NEGATIVE; URINE METHADONE SCREEN NEGATIVE; URINE PHENCYCLIDINE SCREEN NEGATIVE
[2020-04-01] MEDS ORDERED: KETOROLAC TROMETHAMINE INJ/PF 30 MG/1 ML SDV IV ONE (16:54)
--- NOTE | 2020-04-01 17:03 | ER Document Report ---
ED General - General Chief Complaint: Back Pain Stated Complaint: BACK PAIN Time Seen by Provider: 04/01/20 15:10 Primary Care Provider: SILVIA MILLARD PA-C [NO LOCAL MD] - Follow up as needed Mode of Arrival: Wheelchair TRAVEL OUTSIDE OF THE [place] IN LAST 30 DAYS: No - HPI Notes: Chief complaint: Severe lower back pain, inability to walk and loss of sensation both lower extremities History of present illness: 25-year-old female states that she has had problems with her lower back since she has an obstetrical epidural anesthesia several years ago. Her primary providers told her that she has degenerative disc disease and is recommended an MRI previously but she is never had this procedure done. She states that yesterday she slipped while walking and felt like both of her legs "totally gave way" at the same time she had increased pain in her lower back. There was no fall as she was caught by her . Patient says she is taken a variety of fdws-enl-vlyersc medications overnight with little to no relief. She said when she awakened this morning feels like both of her legs are totally numb. She denies any bowel or bladder dysfunction. She denies fever or chills. She denies any history of IV drug use. Patient has a wide variety of chronic pain conditions. She also is treated for major depression. I previously saw her several weeks ago here with atypical chest pain felt to be of musculoskeletal origin. Patient reports history of anaphylactic reaction to hydrocodone. No other allergies reported. - Related Data Allergies/Adverse Reactions: hydrocodone Allergy (Verified 04/01/20 15:10) Past Medical History - General Information source: Patient, [facility] Records - Social History Smoking Status: Never Smoker Chew tobacco use (# tins/day): No Frequency of alcohol use: None Drug Abuse: None Family History: Reviewed & Not Pertinent Patient has homicidal ideation: No Renal/ Medical History: Denies: Hx Peritoneal Dialysis Psychiatric Medical History: Reports: Hx Depression Past Surgical History: Reports: Hx Oral Surgery - wisdom teeth Review of Systems - Review of Systems Notes: Constitutional: Negative for fever. HENT: Negative for sore throat. Eyes: Negative for visual changes. Cardiovascular: Negative for chest pain. Respiratory: Negative for shortness of breath. Gastrointestinal: Negative for abdominal pain, vomiting or diarrhea. Genitourinary: Negative for dysuria. Musculoskeletal: As per HPI. Skin: Negative for rash. Neurological: Negative for headaches, weakness or numbness. 10 point ROS negative except as marked above and in HPI. Physical Exam - Vital signs Vitals: Temp Pulse Resp BP Pulse Ox 98.2 F 86 18 119/71 100 04/01/20 14:57 04/01/20 14:57 04/01/20 14:57 04/01/20 14:57 04/01/20 14:57 - Notes Notes: GENERAL: Well-developed well-nourished female approximately stated age appearing in no moderate discomfort. SKIN: Good turgor no rashes. HEAD: Normocephalic atraumatic. EYES: PERRLA. EOMI. Conjunctivae and sclerae clear. EARS: CANALS AND TMS CLEAR. NOSE: CLEAR. MOUTH: Moist mucosa. Good dentition. No stridor or edema. No drooling. NECK: Supple. No masses or thyromegaly. No adenopathy. Carotids 2+ without bruits. No JVD. BACK: Symmetrical without tenderness. CHEST: Respirations unlabored. Breath sounds clear and symmetrical. HEART: Regular rhythm. No murmur gallop or rub. ABDOMEN: Soft nontender without masses, organomegaly or rebound. Bowel sounds normally active. No bruits. GENITALIA: Deferred. EXTREMITIES: No edema. No calf tenderness. Cap refill less than 1.5 seconds. Dorsalis pedis and posterior tibial pulses 3+ and symmetrical. NEUROLOGICAL: GCS 15. Alert and oriented x3. Fluent speech. Cranial nerves II through XII intact. Motor function appears to be totally intact both upper and lower extremities upon testing of individual muscles. When I try to get her to stand however she complains of severe pain in her back radiating down the posterior aspect of primarily left thigh and says she is unable to bear weight. Normal tone. Deep tendon reflexes are 1+ and symmetrical. Sensation is subjectively decreased over both lower extremities. Patient has a crossed straight leg raising sign with radicular pain extending down the left posterior thigh with extension of the right hip joint more than 15 degrees. PSYCHIATRIC: Appropriate affect. Course - Re-evaluation Re-evalutation: 04/01/20 19:46 Patient received IV Toradol and IV Decadron. Partial relief her discomfort with this. Clinical exam suggests sciatica. MRI was obtained and radiologist reports bulging disks at L3-4 and L4-5 levels. I think she is stable for outpatient management and follow-up with orthopedics. Findings, clinical impression and plan of treatment have been discussed with patient/family. Understanding of current findings and recommendations has been acknowledged by them and there is agreement regarding disposition and follow-up. - Vital Signs Vital signs: Temp Pulse Resp BP Pulse Ox 98.2 F 86 18 119/71 100 04/01/20 14:57 04/01/20 14:57 04/01/20 14:57 04/01/20 14:57 04/01/20 14:57 - Laboratory Result Diagrams: 04/01/20 15:25 04/01/20 15:25 Laboratory results interpreted by me: 04/01/20 04/01/20 15:25 16:09 Sodium 136.9 L Urine Urobilinogen 2.0 H Ur Leukocyte Esterase SMALL H Discharge - Discharge Clinical Impression: Sciatica associated with disorder of lumbar spine Condition: Stable Disposition: HOME, SELF-CARE Instructions: Ice Packs ([facility]) Additional Instructions: Sciatica Your symptoms suggest "sciatica." The pain of sciatica typically radiates down the leg. Numbness in the foot or calf may also occur. Sciatica is caused by irritation of the sciatic nerve or its branches. The irritation can be due to a herniated disk in the spine, swelling and inflammation in the muscles surrounding the sciatic nerve, or direct injury of the nerve itself. Most cases of sciatica will resolve with medical treatment. Bed rest is usually recommended initially. Surgery is only necessary when the condition will not improve with rest and antiinflammatory medication. Muscle relaxers are often given if muscle soreness is present. MRI scan has confirmed presence of a herniated disk. Re-examination is necessary if you develop increasing numbness, localized weakness in the foot or ankle, or if the pain does not respond to rest. Follow-up with your primary care physician if your symptoms or not improved in 3 to 5 days. Prescriptions: Cyclobenzaprine HCl [Flexeril 10 mg Tablet] 10 mg PO TIDP PRN 10 Days #30 tab PRN Reason: Indomethacin 50 mg PO TID 10 Days #30 capsule Referrals: SILVIA MILLARD PA-C [NO LOCAL MD] - Follow up as needed
--- NOTE | 2020-04-01 19:33 | RADIOLOGY REPORT (SQ) ---
EXAM DESCRIPTION: MRI LUMBAR SPINE COMBO IMAGES COMPLETED DATE/TIME: 04/01/2020 7:15 pm REASON FOR STUDY: Sciatica COMPARISON: None. TECHNIQUE: Sagittal and Axial imaging includes T1, T1 post gadolinium, T2, STIR and gradient echo se quences. Coronal T2/HASTE imaging. CONTRAST TYPE AND DOSE: 15 mL Prohance. RENAL FUNCTION: Not indicated. ACR Type II contrast agent associated with few, if any, unconfounded cases of NSF LIMITATIONS: None. FINDINGS: VISUALIZED UPPER ABDOMEN: Limited evaluation. No acute or suspicious findings suggested. SEGMENTATION: No transitional anatomy. The lowest well-developed disc space is labeled L5-S1. ALIGNMENT: Anatomic. VERTEBRAE: Intact. No fractures. BONE MARROW: Normal. No marrow replacement or reactive changes. DISC SIGNAL: There is decreased T2 signal from L3-S1. POSTERIOR ELEMENTS: Generally intact. No pars defect evident. HARDWARE: None in the spine. CORD AND CONUS: Normal in size and signal intensity. Conus at the L1 level. SOFT TISSUES: No aortic aneurysm seen. No bulky retroperitoneal adenopathy or mass. No paraspinal mas s or fluid. L1-L2: No significant spinal stenosis or exit foraminal stenosis. L2-L3: Circumferential disc bulge slightly asymmetrical to the right displacing the right traversing nerve root slightly. No foraminal stenosis. L3-L4: Annular tear. Mild midline disc bulge. No foraminal stenosis. L4-L5: Midline disc bulge. No foraminal stenosis L5-S1: No significant spinal stenosis or exit foraminal stenosis. LOWER THORACIC: Incompletely imaged. No stenosis seen. SACRUM: Visualized upper sacrum intact. ENHANCEMENT: No abnormal enhancement. OTHER: No other significant findings. IMPRESSION: Multilevel disc findings as described. Most significant findings appear to be at L3-4 a nd L4-5. TECHNICAL DOCUMENTATION: JOB ID: [id number] 2010 [employer]- All Rights Reserved Reading location - IP/workstation name: [email or web address]
[2020-04-01] MEDS ORDERED: DEXAMETHASONE SOD PHOS INJ 10 MG/1 ML VIAL IV ONE (19:45)
[2020-04-01 20:08] VITALS: BP 135/79
== END 2020-04-01 20:08 | disposition home or self-care (01) ==
LOC: ER 14:53
DX: M54.40 Lumbago with sciatica, unspecified side (principal); M54.9 Dorsalgia, unspecified; R20.0 Anesthesia of skin; F32.9 Major depressive disorder, single episode, unspecified; Z88.8 Allergy status to other drugs, medicaments and biological substances
CPT/HCPCS: 99284; 96374; 96375; 36415; 85025; 81025; 80053; 81001; 80307; 72158; A9576; J1885; J1100

== ENCOUNTER 2020-06-01 14:18 | Emergency (ER) | payer SELFPAY ==
[2020-06-01 15:42] LABS: ABSOLUTE LYMPHOCYTES (AUTO) 1.5 10^3/uL (0.5-4.7); ABSOLUTE MONOCYTES (AUTO) 0.5 10^3/uL (0.1-1.4); ABSOLUTE NEUT (AUTO) 8.8 10^3/uL (1.7-8.2); BASOPHILS % (AUTO) 0.3 % (0-2); EOSINOPHILS % (AUTO) 0.2 % (0-6); HEMATOCRIT 44.3 % (36.0-47.0); HEMOGLOBIN 15.3 g/dL (12.0-15.5); LYMPHOCYTES % (AUTO) 13.7 % (13-45); MEAN CORPUSCULAR HEMOGLOBIN 29.7 pg (27.0-33.4); MEAN CORPUSCULAR HGB CONC 34.6 g/dL (32.0-36.0); MEAN CORPUSCULAR VOLUME 86 fl (80-97); MONOCYTES % (AUTO) 4.4 % (3-13); PLATELET COUNT 221 10^3/uL (150-450); RED BLOOD COUNT 5.15 10^6/uL (3.72-5.28); RED CELL DISTRIBUTION WIDTH 13.3 % (11.5-14.0); SEGMENTED NEUTROPHILS % (AUTO) 81.4 % (42-78); TOTAL CELLS COUNTED % (AUTO) 100 %; WHITE BLOOD COUNT 10.8 10^3/uL (4.0-10.5)
[2020-06-01 15:57] LABS: ALBUMIN 5.1 g/dL (3.5-5.0); ALKALINE PHOSPHATASE 95 U/L (38-126); ANION GAP 10 (5-19); ASPARTATE AMINO TRANSFERASE 27 U/L (14-36); BILIRUBIN,DIRECT 0.3 mg/dL (0.0-0.4); BILIRUBIN,TOTAL 0.7 mg/dL (0.2-1.3); BLOOD UREA NITROGEN 9 mg/dL (7-20); CALCIUM 9.8 mg/dL (8.4-10.2); CARBON DIOXIDE 25 mmol/L (22-30); CHLORIDE 108 mmol/L (98-107); GLUCOSE 92 mg/dL (75-110); POTASSIUM 4.7 mmol/L (3.6-5.0); TOTAL PROTEIN 8.7 g/dL (6.3-8.2)
--- NOTE | 2020-06-01 16:43 | RADIOLOGY REPORT (SQ) ---
EXAM DESCRIPTION: CT HEAD WITHOUT IMAGES COMPLETED DATE/TIME: 06/01/2020 4:34 pm REASON FOR STUDY: fall syncope head inj COMPARISON: None. TECHNIQUE: Axial images acquired through the brain without intravenous contrast. Images reviewed wi th bone, brain and subdural windows. Additional sagittal and coronal reconstructions were generated. Images stored on PACS. All CT scanners at this facility use dose modulation, iterative reconstruction, and/or weight based d osing when appropriate to reduce radiation dose to as low as reasonably achievable (ALARA). [facility]: Dose Right [facility]: CareDose [facility]: Dose Right [facility]: Teradose 4D [facility]: [employer] RADIATION DOSE: CT Rad equipment meets quality standard of care and radiation dose reduction techniq ues were employed. CTDIvol: 53.2 mGy. DLP: 1017 mGy-cm. mGy. LIMITATIONS: None. FINDINGS: VENTRICLES: Normal size and contour. CEREBRUM: No masses. No hemorrhage. No midline shift. No evidence for acute infarction. Normal gra y/white matter differentiation. No areas of low density in the white matter. CEREBELLUM: No masses. No hemorrhage. No alteration of density. No evidence for acute infarction. EXTRAAXIAL SPACES: No fluid collections. No masses. ORBITS AND GLOBE: No intra- or extraconal masses. Normal contour of globe without masses. CALVARIUM: No fracture. PARANASAL SINUSES: Retention cyst or polyp in the right maxillary sinus. SOFT TISSUES: No mass or hematoma. OTHER: No other significant finding. IMPRESSION: NORMAL BRAIN CT WITHOUT CONTRAST. EVIDENCE OF ACUTE STROKE: NO. COMMENT: Quality ID # [id number]: Final reports with documentation of one or more dose reduction techniques (e.g., Automated exposure control, adjustment of the mA and/or kV according to patient size, use of iterative reconstruction technique) TECHNICAL DOCUMENTATION: JOB ID: [id number] 2010 [employer]- All Rights Reserved Reading location - IP/workstation name: [email or web address]
--- NOTE | 2020-06-01 16:45 | ER Document Report ---
ED Fall - General Chief Complaint: Headache Stated Complaint: VOMITING,HEADACHE,CHEST PAIN Time Seen by Provider: 06/01/20 14:51 Primary Care Provider: KENNEDY JETER PA-C [Primary Care Provider] - Follow up as needed Notes: CHIEF COMPLAINT: Syncopal episode and head injury HPI: 25-year-old female with history of syncopal episodes who is being followed at [facility] presenting for syncopal episode at home where she fell backwards and hit her head, possible loss of consciousness also complains of low back pain. No chest pain abdominal pain nausea vomiting. Not sure if she might be . Has no concerns for COVID ROS: See HPI - all other systems were reviewed and are otherwise negative Constitutional: no fever Eyes: no drainage, no blurred vision ENT: no runny nose, no sore throat Cardiovascular: no chest pain Resp: no SOB, no cough GI: no vomiting, no diarrhea, no abdominal pain : no dysuria Integumentary: no rash Allergy: no hives Musculoskeletal: no extremity pain or swelling, positive back pain Neurological: no numbness/tingling, no weakness, positive headache MEDICATIONS: I agree with the patient medications as charted by the RN. ALLERGIES: I agree with the allergies as charted by the RN. PAST MEDICAL HISTORY/PAST SURGICAL HISTORY: Reviewed and agree as charted by RN. SOCIAL HISTORY: Reviewed and agree as charted by RN. FAMILY HISTORY: No significant familial comorbid conditions directly related to patient complaint EXAM: Reviewed vital signs as charted by RN. CONSTITUTIONAL: Alert and oriented and responds appropriately to questions. Well-appearing; well-nourished HEAD: Normocephalic; atraumatic EYES: PERRL; Conjunctivae clear, sclerae non-icteric ENT: normal nose; no rhinorrhea; moist mucous membranes; pharynx without lesions noted, no uvula edema or deviation, no tonsillar hypertrophy, phonation normal NECK: Supple without meningismus; non-tender; no cervical lymphadenopathy, no masses CARD: RRR; no murmurs, no clicks, no rubs, no gallops; symmetric distal pulses RESP: Normal chest excursion without splinting or tachypnea; breath sounds clear and equal bilaterally; no wheezes, no rhonchi, no rales, pulse oximetry 98% on room air not hypoxic ABD/GI: Normal bowel sounds; non-distended; soft, non-tender, no rebound, no guarding; no palpable organomegaly or masses. BACK: The back appears normal and is non-tender to palpation, there is no CVA tenderness EXT: Normal ROM in all joints; non-tender to palpation; no cyanosis, no effusions, no edema SKIN: Normal color for age and race; warm; dry; good turgor; no acute lesions noted NEURO: Moves all extremities equally; Motor and sensory function intact PSYCH: The patient's mood and manner are appropriate. Grooming and personal hygiene are appropriate. MDM: 25-year-old female who is alert and oriented x3 answering all questions appropriately presenting for head injury after a syncopal episode today. Has had up to 40 episodes this year and is being followed at an outside facility. Will obtain baseline screening labs, CT of the head lumbar spine x-ray. We will have nursing obtain orthostatics. TRAVEL OUTSIDE OF THE [place] IN LAST 30 DAYS: No - Related data Allergies/Adverse Reactions: hydrocodone Allergy (Verified 04/01/20 15:10) Home Medications: meds at bedside Past Medical History - Social History Smoking Status: Never Smoker Family History: Reviewed & Not Pertinent - Past Medical History Cardiac Medical History: Reports: Hx Hypertension Renal/ Medical History: Denies: Hx Peritoneal Dialysis Psychiatric Medical History: Reports: Hx Depression - and anxiety Past Surgical History: Reports: Hx Oral Surgery - wisdom teeth, Hx Orthopedic Surgery - left knee Physical Exam - Vital signs Vitals: Temp Pulse Resp BP Pulse Ox 98.4 F 81 15 116/85 98 06/01/20 14:26 06/01/20 14:26 06/01/20 14:26 06/01/20 14:26 06/01/20 14:26 Course - Re-evaluation Re-evalutation: 06/01/20 19:23 I went in while we stood the patient up heart rate is 89-93 consistently. No longer orthostatic after IV fluids. She likely had an orthostatic syncopal episode today other lab work does not show acute abnormalities. Will discharge home to follow-up with her current providers at [facility] - Vital Signs Vital signs: Temp Pulse Resp BP Pulse Ox 98.3 F 85 16 129/84 H 100 06/01/20 19:18 06/01/20 17:06 06/01/20 19:18 06/01/20 19:18 06/01/20 19:18 - Laboratory Result Diagrams: 06/01/20 15:29 06/01/20 15:29 Laboratory results interpreted by me: 06/01/20 06/01/20 15:29 15:29 WBC 10.8 H Absolute Neuts (auto) 8.8 H Seg Neutrophils % 81.4 H Chloride 108 H Total Protein 8.7 H Albumin 5.1 H Discharge - Discharge Clinical Impression: Orthostatic syncope Head injury due to trauma Qualifiers: Encounter type: initial encounter Qualified Code(s): S09.90XA - Unspecified injury of head, initial encounter Acute lumbar myofascial strain Qualifiers: Encounter type: initial encounter Qualified Code(s): S39.012A - Strain of muscle, fascia and tendon of lower back, initial encounter Condition: Stable Disposition: HOME, SELF-CARE Additional Instructions: Take Motrin or Tylenol for pain. Make sure you hydrate well at home. Your lab work did not show acute abnormalities today. Your head CT was normal. Follow- up with your providers at [facility] for further evaluation of your syncopal e pisodes Referrals: KENNEDY JETER PA-C [Primary Care Provider] - Follow up as needed
--- NOTE | 2020-06-01 16:46 | RADIOLOGY REPORT (SQ) ---
EXAM DESCRIPTION: L SPINE WHOLE IMAGES COMPLETED DATE/TIME: 06/01/2020 4:32 pm REASON FOR STUDY: fall COMPARISON: None. NUMBER OF VIEWS: Five views including obliques. TECHNIQUE: AP, lateral, oblique, and sacral radiographic images acquired of the lumbar spine. LIMITATIONS: None. FINDINGS: MINERALIZATION: Normal. SEGMENTATION: Normal. No transitional anatomy. ALIGNMENT: Straightening of the normal lumbar lordosis. VERTEBRAE: Maintained height. No fracture or worrisome bone lesion. DISCS: Preserved height. No significant osteophytes or end plate irregularity. POSTERIOR ELEMENTS: Pedicles and facets are intact. No pars defect or posterior arch defects. HARDWARE: None in the spine. PARASPINAL SOFT TISSUES: Normal. PELVIS: Intact as visualized. No fractures or worrisome bone lesions. SI joints intact. OTHER: No other significant finding. IMPRESSION: NORMAL 5 VIEW LUMBAR SPINE. TECHNICAL DOCUMENTATION: JOB ID: [id number] 2010 [employer]- All Rights Reserved Reading location - IP/workstation name: [email or web address]
[2020-06-01] MEDS: NORMAL SALINE 1000 ML 1,000 ML IV PRN ×2 (17:28→18:28)
[2020-06-01 19:23] VITALS: BP 129/84
== END 2020-06-01 19:48 | disposition home or self-care (01) ==
LOC: ER 14:18
DX: S09.90XA Unspecified injury of head, initial encounter (principal); S39.012A Strain of muscle, fascia and tendon of lower back, initial encounter; W18.30XA Fall on same level, unspecified, initial encounter; R11.10 Vomiting, unspecified; I95.1 Orthostatic hypotension
CPT/HCPCS: 99285; 96360; 96361; 36415; 84703; 85025; 80053; 72110; 70450; J7030

== ENCOUNTER 2020-09-03 13:33 | Emergency (ER) | payer SELFPAY ==
[2020-09-03] MEDS ORDERED: NORMAL SALINE 1000 ML 1,000 ML IV ONE (14:59)
[2020-09-03] MEDS ORDERED: ONDANSETRON HCL INJ/PF 4 MG/2 ML SDV IV ONE (14:59)
--- NOTE | 2020-09-03 15:00 | ER Document Report ---
ED Medical Screen (RME) - General Stated Complaint: POSSIBLE SEIZURE Time Seen by Provider: 09/03/20 14:46 Primary Care Provider: KENNEDY JETER PA-C [Primary Care Provider] - Follow up as needed Mode of Arrival: Medic Information source: Patient Notes: HPI; 25-year-old female past medical history significant for stress-induced syncope was brought to the emergency room by ambulance after having a syncopal episode with possible seizure activity at home prior to arrival. Patient states the last thing she remembers is brushing her teeth states when she woke up her told her she passed out fell to the floor and he noticed that she was convulsing was not incontinent. Not postictal unknown length of consciousness. Patient states she has syncopal episode approximately a month ago while visiting friends in [place] was admitted with a negative work-up with CTs and MRIs. Was told that her syncopal episode was related to stress. Patient states she was drinking a excessive amount of alcohol last evening. Does not even remember how much she drank or when her last drink was. Patient complains of nausea vomiting today. A few episodes of diarrhea earlier in the week. States she found out on Saturday.a coworker tested positive on Saturday for Covid her last known exposure to a coworker was 8 days ago. Patient did not get tested for Covid. No other ill contacts. Patient is complaining of nausea, vomiting, and generalized weakness. PE: Alert and oriented x3. Lungs: Clear to auscultation without rales, rhonchi, wheezes. Heart: Regular rate rhythm without murmurs, rubs, gallops. PERRLA, EOMI Patient was evaluated during the global COVID-19 pandemic and that diagnosis was suspected/considered upon their initial presentation. Their evaluation, treatment and testing was consistent with current guidelines for patients who presents with complaints or systems that may be related to COVID-19. I have greeted and performed a rapid initial assessment of this patient. A comprehensive ED assessment and evaluation of the patient, analysis of test results and completion of the medical decision making process will be conducted by additional ED providers. I have specifically instructed the patient or family members with the patient to immediately return to any nursing staff should anything change in the patient's condition or with their chief complaint. TRAVEL OUTSIDE OF THE [place] IN LAST 30 DAYS: No - Related Data Allergies/Adverse Reactions: hydrocodone Allergy (Verified 04/01/20 15:10) Past Medical History - Past Medical History Cardiac Medical History: Reports: Hx Hypertension Renal/ Medical History: Denies: Hx Peritoneal Dialysis Psychiatric Medical History: Reports: Hx Depression - and anxiety Past Surgical History: Reports: Hx Oral Surgery - wisdom teeth, Hx Orthopedic Surgery - left knee Physical Exam - Vital signs Vitals: Temp Pulse Resp BP Pulse Ox 98.3 F 78 16 118/82 99 09/03/20 14:43 09/03/20 14:43 09/03/20 14:43 09/03/20 14:43 09/03/20 14:43 Course - Vital Signs Vital signs: Temp Pulse Resp BP Pulse Ox 98.3 F 78 16 118/82 99 09/03/20 14:43 09/03/20 14:43 09/03/20 14:43 09/03/20 14:43 09/03/20 14:43 Doctor's Discharge - Discharge Referrals: KENNEDY JETER PAMaribellC [Primary Care Provider] - Follow up as needed
--- NOTE | 2020-09-03 15:48 | EKG REPORT ---
SEVERITY:- BORDERLINE ECG - SINUS RHYTHM BORDERLINE T ABNORMALITIES, ANTERIOR LEADS : Confirmed by: Gerardo Carvalho MD 03-Sep-2020 15:47:35
--- NOTE | 2020-09-03 15:59 | ER Document Report ---
ED Syncope and Near Syncope - General Stated Complaint: POSSIBLE SEIZURE Time Seen by Provider: 09/03/20 14:46 Primary Care Provider: KENNEDY JETER PA-C [NO LOCAL MD] - Follow up as needed Mode of Arrival: Medic Notes: CHIEF COMPLAINT: Syncopal episode HPI: 25-year-old female presenting to the emergency department by EMS for evaluation of a syncopal episode. Patient states that she has been having syncopal episodes over the last few months. Patient had been worked up extensively while living in [place] including CT and MRI she was following with neurology there. She states they told her it was nonelectrical seizures that she was having but focal or mechanical type seizures. Patient states that she was brushing her teeth today and that is the last thing she remembers in her apparently told her that she had fallen to the floor and was convulsing for several minutes. Patient does not recall this. She was not incontinent of urine or bowel. She denies headache. Patient has had nausea today. Patient states she drank an excessive amount of alcohol to the point that she had an alcoholic type blackout. Patient is not sure if the excessive amount of alcohol she drank last night is possibly contributing to her nausea today. No abdominal pain no actual vomiting. Patient states she was told that she should not drink alcohol but ignore this advice. Patient states that she did have a positive Covid exposure 8 days ago to a coworker. She states her son has a fever. ROS: See HPI - all other systems were reviewed and are otherwise negative Constitutional: no fever Eyes: no drainage, no blurred vision ENT: no runny nose, no sore throat Cardiovascular: no chest pain Resp: no SOB, no cough GI: no vomiting, no diarrhea, no abdominal pain, positive nausea : no dysuria Integumentary: no rash Allergy: no hives Musculoskeletal: no extremity pain or swelling Neurological: no numbness/tingling, no weakness MEDICATIONS: I agree with the patient medications as charted by the RN. ALLERGIES: I agree with the allergies as charted by the RN. PAST MEDICAL HISTORY/PAST SURGICAL HISTORY: Reviewed and agree as charted by RN. SOCIAL HISTORY: Reviewed and agree as charted by RN. FAMILY HISTORY: No significant familial comorbid conditions directly related to patient complaint EXAM: Reviewed vital signs as charted by RN. CONSTITUTIONAL: Alert and oriented and responds appropriately to questions. Well-appearing; well-nourished HEAD: Normocephalic; atraumatic EYES: PERRL; Conjunctivae clear, sclerae non-icteric ENT: normal nose; no rhinorrhea; moist mucous membranes; pharynx without lesions noted, no uvula edema or deviation, no tonsillar hypertrophy, phonation normal NECK: Supple without meningismus; non-tender; no cervical lymphadenopathy, no masses CARD: RRR; no murmurs, no clicks, no rubs, no gallops; symmetric distal pulses RESP: Normal chest excursion without splinting or tachypnea; breath sounds clear and equal bilaterally; no wheezes, no rhonchi, no rales, pulse oximetry 97% on room air not hypoxic ABD/GI: Normal bowel sounds; non-distended; soft, non-tender, no rebound, no guarding; no palpable organomegaly or masses. BACK: The back appears normal and is non-tender to palpation, there is no CVA tenderness EXT: Normal ROM in all joints; non-tender to palpation; no cyanosis, no effusions, no edema SKIN: Normal color for age and race; warm; dry; good turgor; no acute lesions noted NEURO: Moves all extremities equally; Motor and sensory function intact PSYCH: The patient's mood and manner are appropriate. Grooming and personal hygiene are appropriate. MDM: 25-year-old female presenting for syncopal type episode with some possible seizure activity. Patient is completely alert and oriented answers all questions appropriately. She is neurologically intact. She has no headache. No visible head injury. No abdominal pain. She has nausea but drank an excessive amount of alcohol last night. Initial work-up placed by triage process. We will also obtain Covid screening. The patient was evaluated during the global COVID-19 pandemic and that diagnosis was suspected/considered upon their initial presentation. Their evaluation, treatment and testing was consistent with current guidelines for patients who present with complaints or symptoms that may be related to COVID-19 TRAVEL OUTSIDE OF THE [place] IN LAST 30 DAYS: No - Related Data Allergies/Adverse Reactions: hydrocodone Allergy (Verified 04/01/20 15:10) Past Medical History - General Information source: Patient - Social History Smoking Status: Unknown if Ever Smoked Family History: Reviewed & Not Pertinent - Past Medical History Cardiac Medical History: Reports: Hx Hypertension Renal/ Medical History: Denies: Hx Peritoneal Dialysis Psychiatric Medical History: Reports: Hx Depression - and anxiety Past Surgical History: Reports: Hx Oral Surgery - wisdom teeth, Hx Orthopedic Surgery - left knee Physical Exam - Vital signs Vitals: Temp Pulse Resp BP Pulse Ox 98.3 F 78 16 118/82 99 09/03/20 14:43 09/03/20 14:43 09/03/20 14:43 09/03/20 14:43 09/03/20 14:43 Course - Re-evaluation Re-evalutation: 09/03/20 19:25 Patient states she feels much better. No further nausea vomiting. She is a person under investigation for COVID-19. She also quarantine at home. Will prescribe Zofran for nausea vomiting. - Vital Signs Vital signs: Temp Pulse Resp BP Pulse Ox 98.3 F 78 16 127/85 H 97 09/03/20 14:43 09/03/20 14:43 09/03/20 18:10 09/03/20 18:10 09/03/20 18:10 - Laboratory Results Result Diagrams: 09/03/20 16:21 09/03/20 16:21 Laboratory Results Interpreted: 09/03/20 09/03/20 16:21 16:21 Seg Neutrophils % 79.5 H Urine Protein 100 H Ur Leukocyte Esterase SMALL H Critical Laboratory Results Reviewed: No Critical Results - Radiology Results Critical Radiology Results Reviewed: No Critical Results Discharge - Discharge Clinical Impression: Person under investigation for COVID-19 Syncope Qualifiers: Syncope type: unspecified Qualified Code(s): R55 - Syncope and collapse Nausea & vomiting Qualifiers: Vomiting type: unspecified Vomiting Intractability: non-intractable Qualified Code(s): R11.2 - Nausea with vomiting, unspecified Condition: Stable Disposition: HOME, SELF-CARE Additional Instructions: You are considered a person under investigation for COVID-19 at this time self quarantine at home pending your test results. Test results may take 2 to 5 days you should receive notification from the hospital about your test results. Use the Zofran for any recurrent nausea or vomiting. Hydrate well at home. Follow- up with neurology for further evaluation and management of your syncopal and seizure activity Prescriptions: Ondansetron [Zofran Odt 4 mg Tablet] 1 - 2 tab PO Q4H PRN #15 tab.rapdis PRN Reason: For Nausea/Vomiting Referrals: KENNEDY JETER PA-C [NO LOCAL MD] - Follow up as needed NAILA LUNDBERG MD [COMMUNITY BASED STAFF] - Follow up as needed
[2020-09-03 16:40] LABS: ABSOLUTE LYMPHOCYTES (AUTO) 1.2 10^3/uL (0.5-4.7); ABSOLUTE MONOCYTES (AUTO) 0.5 10^3/uL (0.1-1.4); BASOPHILS % (AUTO) 0.3 % (0-2); EOSINOPHILS % (AUTO) 0.2 % (0-6); HEMATOCRIT 42.6 % (36.0-47.0); HEMOGLOBIN 14.7 g/dL (12.0-15.5); MEAN CORPUSCULAR HEMOGLOBIN 29.7 pg (27.0-33.4); MEAN CORPUSCULAR HGB CONC 34.5 g/dL (32.0-36.0); MEAN CORPUSCULAR VOLUME 86 fl (80-97); PLATELET COUNT 201 10^3/uL (150-450); RED BLOOD COUNT 4.94 10^6/uL (3.72-5.28); RED CELL DISTRIBUTION WIDTH 12.9 % (11.5-14.0); SEGMENTED NEUTROPHILS % (AUTO) 79.5 % (42-78); TOTAL CELLS COUNTED % (AUTO) 100 %; WHITE BLOOD COUNT 8.8 10^3/uL (4.0-10.5)
[2020-09-03 16:48] LABS: APPEARANCE,URINE SLIGHTLY-CLOUDY; BILIRUBIN,URINE NEGATIVE (NEGATIVE); COLOR,URINE YELLOW; GLUCOSE, URINE NEGATIVE (NEGATIVE); KETONES,URINE NEGATIVE (NEGATIVE); LEUKOCYTE ESTERASE,URINE SMALL (NEGATIVE); NITRITE,URINE NEGATIVE (NEGATIVE); PROTEIN,URINE 100 mg/dL (NEGATIVE); URINE SPECIFIC GRAVITY 1.025; UROBILINOGEN,URINE NEGATIVE mg/dL (<2.0)
[2020-09-03 17:01] LABS: ALBUMIN 4.6 g/dL (3.5-5.0); ALKALINE PHOSPHATASE 94 U/L (38-126); ANION GAP 10 (5-19); ASPARTATE AMINO TRANSFERASE 31 U/L (14-36); BILIRUBIN,DIRECT 0.1 mg/dL (0.0-0.4); BILIRUBIN,TOTAL 0.5 mg/dL (0.2-1.3); BLOOD UREA NITROGEN 9 mg/dL (7-20); CALCIUM 9.4 mg/dL (8.4-10.2); CARBON DIOXIDE 26 mmol/L (22-30); CHLORIDE 107 mmol/L (98-107); GLUCOSE 87 mg/dL (75-110); POTASSIUM 4.5 mmol/L (3.6-5.0)
[2020-09-03 17:02] LABS: ALCOHOL < 10 mg/dL (NONE DETECTED)
[2020-09-03] MEDS ORDERED: ONDANSETRON HCL INJ/PF 4 MG/2 ML SDV ONE (18:08)
[2020-09-03] MEDS ORDERED: ACETAMINOPHEN 325 MG TABLET PO ONE (19:40)
[2020-09-03 19:43] VITALS: BP 118/72
== END 2020-09-03 19:48 | disposition home or self-care (01) ==
LOC: ER 13:33
DX: R55 Syncope and collapse (principal); R56.9 Unspecified convulsions; R11.2 Nausea with vomiting, unspecified; F10.10 Alcohol abuse, uncomplicated; Z20.828 Contact with and (suspected) exposure to other viral communicable diseases; I10 Essential (primary) hypertension
CPT/HCPCS: 93005; 99284; 96361; 96374; 36415; 80307; 84703; 85025; 87635; 80053; 81001; 93010; J2405; J7030; C9803